=== PATIENT | male | born 1970 ===

== ENCOUNTER 2017-06-28 18:00 | Emergency (ER) | payer OTHER ==
[2017-06-28 18:12] VITALS: BP 105/76; RESP 20; TEMP 98.1; O2SAT 97
--- NOTE | 2017-06-28 19:49 | ED PDOC ---
HPI: Chest Pain Time Seen by Provider: 06/28/17 18:15 Chief Complaint (Nursing): Chest Pain Chief Complaint (Provider): Chest pain History Per: Patient History/Exam Limitations: no limitations Onset/Duration Of Symptoms: Persistent Current Symptoms Are (Timing): Intermittent Episodes Additional Complaint(s): 46yo male, with no past medical history, presents to Ed with complaints of chest pain which has been ongoing for the past 3 weeks. Patient states the pain is intermittent, left sided and worse with pressing. He reports the pain has not changed, and denies any shortness of breath, leg swelling, difficulty breathing, cough, fever. He also denies any injuries or trauma. 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 He currently offers no other medical complaints. PMD: None Past Medical History Reviewed: Historical Data, Nursing Documentation, Vital Signs Vital Signs: Last Vital Signs Temp 98.1 F 06/28/17 18:11 Pulse 64 06/28/17 20:04 Resp 20 06/28/17 18:11 BP 105/76 06/28/17 18:11 Pulse Ox 97 06/28/17 20:04 - Medical History PMH: No Chronic Diseases - Surgical History Surgical History: No Surg Hx - Family History Family History: States: No Known Family Hx - Living Arrangements Living Arrangements: With Family - Social History Current smoker - smoking cessation education provided: No Alcohol: None Drugs: Denies - Allergies Allergies/Adverse Reactions: Allergies Allergy/AdvReac Type Severity Reaction Status Date / Time No Known Allergies Allergy Verified 06/28/17 18:05 Review of Systems ROS Statement: Except As Marked, All Systems Reviewed And Found Negative (as per HPI) Constitutional: Negative for: Fever, Chills Cardiovascular: Positive for: Chest Pain Respiratory: Negative for: Cough, Shortness of Breath Musculoskeletal: Negative for: Other (leg swelling) Physical Exam - Reviewed Nursing Documentation Reviewed: Yes Vital Signs Reviewed: Yes - Physical Exam Appears: Positive for: Non-toxic, No Acute Distress Head Exam: Positive for: ATRAUMATIC, NORMOCEPHALIC Skin: Positive for: Warm, Dry Eye Exam: Positive for: EOMI, PERRL ENT: Positive for: Pharynx Is (clear) Neck: Positive for: Painless ROM, Supple Cardiovascular/Chest: Positive for: Regular Rate, Rhythm, Other (mild reproducible chest wall ttp). Negative for: Murmur Respiratory: Positive for: Normal Breath Sounds. Negative for: Rales, Rhonchi, Wheezing, Respiratory Distress Gastrointestinal/Abdominal: Positive for: Soft. Negative for: Tenderness Back: Positive for: Normal Inspection. Negative for: Decreased ROM Extremity: Positive for: Normal ROM. Negative for: Pedal Edema, Calf Tenderness , Deformity Lymphatic: Negative for: Adenopathy Neurologic/Psych: Positive for: Alert. Negative for: Motor/Sensory Deficits - ECG ECG: Positive for: Interpreted By Me, Viewed By Me ECG Rhythm: Positive for: Normal QRS, Normal ST Segment, Sinus Rhythm Rate: 64 O2 Sat by Pulse Oximetry: 97 (RA) Pulse Ox Interpretation: Normal Medical Decision Making Medical Decision Making: Impression: Chest pain Differential: Musculoskeletal pain Plan: -- EKG -- CXR Time: 1902 Repeat EKG indicates no acute changes from prior. Time: 1936 Patient reports improvement in chest pain. CXR reviewed and shows no acute findings. Patient informed of findings and is stable for discharge home. Patient given information regarding follow up at [facility]. Scribe Attestation: Documented by Symone Odonnell acting as a scribe for Bekah Damian MD. Provider Attestation: All medical record entries made by the Scribe were at my direction and personally dictated by me. I have reviewed the chart and agree that the record accurately reflects my personal performance of the history, physical exam, medical decision making, and the department course for this patient. I have also personally directed, reviewed, and agree with the discharge instructions and disposition. Disposition - Clinical Impression Clinical Impression: Chest pain - Disposition Referrals: [facility] [Outside] Disposition: Routine/Home Disposition Time: 19:30 Condition: GOOD Instructions: Chest Pain That Is Not Caused by the Heart (DC), Stress Forms: [email or web address] (Urdu) Print Language: TURKMEN
[2017-06-28 20:02] VITALS: PULSE 64
--- NOTE | 2017-06-29 07:37 | CARD ---
APPROVED REPORT EKG Measurement Heart [id number] <Conclusion> Normal sinus rhythm with sinus arrhythmia Normal ECG
--- NOTE | 2017-06-29 07:38 | CARD ---
APPROVED REPORT EKG Measurement Heart [id number] <Conclusion> Normal sinus rhythm Normal ECG
--- NOTE | 2017-06-29 13:25 | RAD ---
HISTORY: Chest pain. COMPARISON: No prior. TECHNIQUE: Chest PA and lateral FINDINGS: LUNGS: No active pulmonary disease. PLEURA: No significant pleural effusion identified. No pneumothorax apparent. CARDIOVASCULAR: Normal. OSSEOUS STRUCTURES: No significant abnormalities. VISUALIZED UPPER ABDOMEN: Normal. OTHER FINDINGS: None. IMPRESSION: No active disease.
== END 2017-06-28 19:58 | disposition home or self-care (01) ==
LOC: H.ER 18:00
DX: R07.9 Chest pain, unspecified (principal)